=== PATIENT | female | born 1945 | race Caucasian/White ===

== ENCOUNTER → 2018-02-02 | Outpatient (CLI) | payer MEDICARE, OTHER ==
[~2018-02-02] MED LIST: ASPI81EC; ATEN25; CALCAVITD PO; HYDACE5 PO; NAPR220; SERT50; SIMV10 PO
== END ==
LOC: PLD 14:55 → LAB SHORT 14:55
DX: D22.5 Melanocytic nevi of trunk (principal)
CPT/HCPCS: 88305

== ENCOUNTER 2023-11-02 15:46 | Emergency (ER) | payer MEDICARE, OTHER ==
[~2023-11-02] VITALS: Ht 172.7 cm; Wt 70.3 kg
[2023-11-02 15:57] VITALS: BP 129/72
[2023-11-02 16:41] LABS: BASOPHILS ABSOLUTE AUTO 0.05 K/mm3 (0.00-0.23); BASOPHILS PERCENT AUTO 1 % (0-2); EOSINOPHILS ABSOLUTE AUTO 0.07 K/mm3 (0.00-0.68); EOSINOPHILS PERCENT AUTO 1 % (0-6); Hematocrit 41.6 % (33.0-51.0); Hemoglobin 13.8 g/dL (11.5-16.0); IMMATURE GRAN ABSOLUTE AUTO 0.01 K/mm3 (0.00-0.10); IMMATURE GRAN PERCENT AUTO 0 % (0-1); LYMPHOCYTES ABSOLUTE AUTO 1.57 K/mm3 (0.84-5.20); LYMPHOCYTES PERCENT AUTO 32 % (21-46); MONOCYTES ABSOLUTE AUTO 0.52 K/mm3 (0.16-1.47); MONOCYTES PERCENT AUTO 11 % (4-13); Mean Corpuscular HGB 30.7 pg (26.0-34.0); Mean Corpuscular HGB Conc 33.2 g/dL (31.5-36.5); Mean Corpuscular Volume 93 fL (80-100); Mean Platelet Volume 9.6 fL (9.1-12.4); NEUTROPHILS ABSOLUTE AUTO 2.75 K/mm3 (1.96-9.15); NEUTROPHILS PERCENT AUTO 55 % (41-73); Platelet Count 233 K/mm3 (150-400); RDW Coefficient Variation 12.4 % (11.7-14.2); RDW Standard Deviation 42.2 fL (35.1-46.3); Red Blood Cell Count 4.49 M/mm3 (3.80-5.20); White Blood Cell Count 4.97 K/mm3 (4.00-11.30)
[2023-11-02 17:40] LABS: Albumin, Blood 3.7 g/dL (3.4-5.0); Albumin/Globulin Ratio 1.1 (0.8-1.8); Bilirubin, Total 0.2 mg/dL (0.1-1.0); Bun/Creatinine Ratio 28.2 (12.0-20.0); Calcium, Blood 9.3 mg/dL (8.5-10.1); Creatinine, Blood 0.82 mg/dL (0.40-1.00); Globulin, Blood 3.5 g/dL (2.2-4.0); Potassium, Blood 4.2 mmol/L (3.5-5.5); Total Protein, Blood 7.2 g/dL (6.4-8.2)
== END 2023-11-02 19:49 | disposition home or self-care (01) ==
LOC: ER 15:46
PROVIDERS: Physician Assistant
DX: I48.20 Chronic atrial fibrillation, unspecified (principal); Z88.4 Allergy status to anesthetic agent; Z79.899 Other long term (current) drug therapy
CPT/HCPCS: 80053; 84484; 85025; 93005; 93010; 99285-25

== ENCOUNTER → 2024-11-21 | Outpatient (CLI) | payer MEDICARE, OTHER ==
[2024-11-21 15:32] LABS: BASOPHILS ABSOLUTE AUTO 0.04 K/mm3 (0.00-0.23); BASOPHILS PERCENT AUTO 1 % (0-2); EOSINOPHILS ABSOLUTE AUTO 0.07 K/mm3 (0.00-0.68); EOSINOPHILS PERCENT AUTO 2 % (0-6); Hematocrit 38.4 % (33.0-51.0); Hemoglobin 12.8 g/dL (11.5-16.0); IMMATURE GRAN ABSOLUTE AUTO 0.01 K/mm3 (0.00-0.10); IMMATURE GRAN PERCENT AUTO 0 % (0-1); LYMPHOCYTES ABSOLUTE AUTO 1.23 K/mm3 (0.84-5.20); LYMPHOCYTES PERCENT AUTO 30 % (21-46); MONOCYTES ABSOLUTE AUTO 0.36 K/mm3 (0.16-1.47); MONOCYTES PERCENT AUTO 9 % (4-13); Mean Corpuscular HGB 31.3 pg (26.0-34.0); Mean Corpuscular HGB Conc 33.3 g/dL (31.5-36.5); Mean Corpuscular Volume 94 fL (80-100); NEUTROPHILS ABSOLUTE AUTO 2.43 K/mm3 (1.96-9.15); NEUTROPHILS PERCENT AUTO 59 % (41-73); Platelet Count 221 K/mm3 (150-400); RDW Coefficient Variation 12.3 % (11.7-14.2); RDW Standard Deviation 42.5 fL (35.1-46.3); Red Blood Cell Count 4.09 M/mm3 (3.80-5.20); White Blood Cell Count 4.14 K/mm3 (4.00-11.30)
[2024-11-21 16:23] LABS: Free Thyroxine 0.87 ng/dL (0.70-1.60)
[2024-11-21 16:43] LABS: Thyroid Stimulating Hormone 0.928 uIU/mL (0.360-4.800); Triiodothyronine, Free 2.45 pg/mL (2.18-3.98)
== END | disposition home or self-care (01) ==
LOC: LAB 14:19 → LAB SHORT 14:19
PROVIDERS: Internal Medicine
DX: E53.8 Deficiency of other specified B group vitamins (principal); G62.9 Polyneuropathy, unspecified; E04.1 Nontoxic single thyroid nodule; R73.01 Impaired fasting glucose
CPT/HCPCS: 82607; 83036; 84439; 84443; 84481; 85025; 85651; 86140

== ENCOUNTER 2025-10-09 07:01 | Day surgery (SDC) | payer MEDICARE, OTHER ==
[~2025-10-09] VITALS: Ht 172.7 cm; Wt 72.1 kg
[2025-10-09] VITALS (12 sets, daily range): BP systolic 108–153; BP diastolic 54–96
[~2025-10-09 07:01] MED LIST changes: +AMLO5 PO; +ATEN25 PO; +C COMPLEX1000 M1 PO; +Calcium Carbon500 MG PO; +Crestor40 MG PO; +ELIQUIS5 M2 PO; +EZET10 PO; +MULVITA PO; +SERT50 PO; +VITAMIN D31000 UNI1 PO
[2025-10-09] MEDS ORDERED: Chlorhexidine Mouth Care 15 ML UDC MT SCH (07:15)
[2025-10-09] MEDS ORDERED: Tranexamic Acid 100 ML IV SCH (07:15)
[2025-10-09] MEDS ORDERED: CeFAZolin Sodium 2,000 MG in NS 100 ML IV SCH ×2 (07:15→17:00)
[2025-10-09] MEDS ORDERED: Ropivacaine 0.5% HCl/Pf 123.125 MG,EPINEPHrine HCL 0.25 MG,Ketorolac Tromethamine 15 MG... INFIL SCH (07:15)
[2025-10-09] MEDS ORDERED: Midazolam HCl 1MG / ML 2ML Vial IV PRN (07:55)
[2025-10-09] MEDS ORDERED: FentaNYL Citrate 50 MCG/ML 2 ML Injection ONE ×2 (08:21→10:49)
[2025-10-09] MEDS ORDERED: Phenylephrine HCl 100 MCG/ML-NS 10MLSYR (1MG/10ML) ONE (08:24)
[2025-10-09] MEDS ORDERED: Ondansetron HCl 2 MG / ML 2ML Vial ONE (08:24)
--- NOTE | 2025-10-09 08:48 | NUR ---
Ambulatory in Day Surgery, accompanied by her spouse Frank. History, Chart, Medications and Allergies reviewed before start of procedure. Patient confirms NPO status and agrees with scheduled surgery. Pre-Op teaching done. Pt verbalizes understanding. Patient States Post-Procedure ride home has been arranged. Pt belongings placed underneath storm for safekeeping, including her glasses and hearing aids x2.
[2025-10-09] MEDS ORDERED: FentaNYL Citrate 50 MCG/ML 2 ML Injection IV PRN ×2 (08:50)
[2025-10-09] MEDS ORDERED: Dexamethasone Sodium Phosphate 4 MG/ML 5ML VIAL IV PRN (08:50)
[2025-10-09] MEDS ORDERED: Ondansetron HCl 2 MG / ML 2ML Vial IV PRN ×2 (08:50→09:40)
[2025-10-09] MEDS ORDERED: HYDROmorphone HCl/Pf 1MG SYR IV PRN ×2 (08:55→09:35)
[2025-10-09] MEDS ORDERED: FLU VACC TS2025(65UP)/MF59C/PF 45 MCG/0.5 ML SYRINGE IM SCH (09:35)
[2025-10-09] MEDS ORDERED: Magnesium Hydroxide Conc 10 ML UDC PO PRN (09:40)
[2025-10-09] MEDS ORDERED: Metoclopramide HCl 5MG / ML 2ML Vial IV PRN (09:40)
--- NOTE | 2025-10-09 11:41 | NUR ---
PT ARRIVED TO UNIT FROM PACU. TRANSFERRED PT FROM [facility] TO BED. POLAR PACK AND SCD'S PLACED. LCA. HRR. BTX4. DRESSING TO RLE CDI.
[2025-10-09] MEDS ORDERED: Ketorolac Tromethamine 15mg Vial IV SCH (12:00)
--- NOTE | 2025-10-09 15:04 | NUR ---
WORKING WITH PHYS THERAPY
--- NOTE | 2025-10-09 15:12 | NUR ---
PT CLEARED THERAPY. RESTING IN RECLINER W/FEET ELEVATED AND POLAR PACK IN PLACE.
--- NOTE | 2025-10-09 16:43 | NUR ---
DISCHARGED PT MET CRITERIA FOR DC. REVIEWED DC INSTRUCTIONS W/PT AND SPOUSE; VERBALIZED UNDERSTANDING. PT LEFT UNIT IN WC W/POSSESSIONS AND DC PAPERWORK IN HAND, SPOUSE PULLING CAR UP TO PATIENT ENTRANCE.
[2025-10-10] MEDS ORDERED: Multivitamins 1 Tab PO SCH (09:00)
[2025-10-10] MEDS ORDERED: Cholecalciferol 1000 Unit Tablet (=25MCG) PO SCH (09:00)
== END 2025-10-09 16:41 | disposition home or self-care (01) ==
LOC: ORSCMMR 07:01 → ORD 08:15 → ORSCMMR 08:15 → SURS 11:05 → ORSCMMR 16:41
PROVIDERS: Orthopaedic Surgery
PROC: 0SRC0JA Replacement of Right Knee Joint with Synthetic Substitute, Uncemented, Open Approach (ICD-10-PCS; principal; 2025-10-09 08:15)
DX: M17.11 Unilateral primary osteoarthritis, right knee (principal); I48.91 Unspecified atrial fibrillation; Z79.01 Long term (current) use of anticoagulants; Z79.899 Other long term (current) drug therapy; E78.5 Hyperlipidemia, unspecified; Z85.828 Personal history of other malignant neoplasm of skin
CPT/HCPCS: 73560-RT; 97110; 97116; 97161; A9270; C1713; C1776; J0166; J0690; J0735; J1885; J2371; J2405; J2704; J2795; J3010; J3373; J7050; J7120